=== PATIENT | male | born 1985 | race Two or more races ===

== ENCOUNTER 2024-11-15 12:13 | Emergency (ER) | payer MEDICAID ==
[~2024-11-15] VITALS: Ht 185.4 cm; Wt 104.3 kg
[2024-11-15 12:13] VITALS: BP 156/80; TEMP 98
[2024-11-15 14:22] VITALS: O2SAT 99
== END 2024-11-15 14:23 | disposition home or self-care (01) ==
LOC: ER 12:22
DX: R06.02 Shortness of breath (principal); R09.81 Nasal congestion; R05.9 Cough, unspecified; Z88.5 Allergy status to narcotic agent
CPT/HCPCS: 71045-TC